=== PATIENT | female | born 1970 | race Caucasian/White ===

== ENCOUNTER 2020-05-19 13:03 | Emergency (ER) | payer MEDICAID, OTHER ==
[2020-05-19] MEDS ORDERED: Ketorolac 60 MG/2 ML SDV IM ONE (14:30)
--- NOTE | 2020-05-19 14:38 | CR ---
Cervical spine: AP, lateral and odontoid views of the cervical spine were obtained. Art: No previous study. Vertebral body heights are maintained. Minimal disc space narrowing is noted at C5-6 and C6-7. Anterior osteophytes are noted at both these levels as well as minimal posterior osteophytes. Other disc spaces and vertebral body heights are maintained. Prevertebral soft tissues are normal. No subluxation or fracture is appreciated. Impression: 1. Mild degenerative change as noted above. 2. Nothing acute is seen. Diagnostic code #2 This report was dictated in MDT
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
== END 2020-05-19 15:41 | disposition home or self-care (01) ==
LOC: JD.ED 13:03
DX: S16.1XXA Strain of muscle, fascia and tendon at neck level, initial encounter (principal); S00.31XA Abrasion of nose, initial encounter; Z88.1 Allergy status to other antibiotic agents; Z88.0 Allergy status to penicillin; Z88.2 Allergy status to sulfonamides; V89.2XXA Person injured in unspecified motor-vehicle accident, traffic, initial encounter
CPT/HCPCS: 72040; 96372; 99284; J1885; 99283

== ENCOUNTER 2020-06-09 16:23 | Emergency (ER) | payer OTHER, MEDICAID ==
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
== END 2020-06-09 17:35 | disposition home or self-care (01) ==
LOC: JD.ED 16:23
DX: S20.02XA Contusion of left breast, initial encounter (principal); Z88.1 Allergy status to other antibiotic agents; Z88.0 Allergy status to penicillin; Z88.2 Allergy status to sulfonamides; V89.2XXA Person injured in unspecified motor-vehicle accident, traffic, initial encounter
CPT/HCPCS: 99282; 99283-25

== ENCOUNTER 2020-06-17 23:56 | Emergency (ER) | payer SELFPAY ==
--- NOTE | 2020-06-18 01:07 | EDM.PDOC ---
ED HPI GENERAL MEDICAL PROBLEM - General Chief Complaint: General Stated Complaint: DIARRHEA/NAUSEA Time Seen by Provider: 06/18/20 00:47 Source of Information: Reports: Patient History Limitations: Reports: No Limitations - History of Present Illness INITIAL COMMENTS - FREE TEXT/NARRATIVE: This is a 49-year-old female. For the last 2 days she has been having diarrhea nausea and some mild vomiting but the last time she vomited was 24 hours ago. She also complains of some left lower back pain as well. She has been having urgency and dysuria but minimal voiding. She is also been incontinent at times. She states she has had no fever and no chills. She denies any cough or any other symptoms. She has had bladder infection for the past but this seems to be worse. She states she is going through menopause and she just finished her period. Left Lower Back Pain Score (Numeric/FACES): 9 - Related Data Allergies Allergy/AdvReac Type Severity Reaction Status Date / Time amoxicillin Allergy Severe Rash Verified 06/18/20 00:25 Penicillins Allergy Severe Hives Verified 06/18/20 00:25 Sulfa (Sulfonamide Allergy Severe Vomiting Verified 06/18/20 00:25 Antibiotics) tetracycline Allergy Severe Other Verified 06/18/20 00:25 Home Meds: Home Meds Phenazopyridine [Pyridium] 100 mg PO TID #15 tab 06/18/20 [Rx] cephALEXin [Keflex] 500 mg PO Q8H #21 cap 06/18/20 [Rx] Past Medical History - Past Health History Medical/Surgical History: Denies Medical/Surgical History Musculoskeletal History: Reports: Other (See Below) Other Musculoskeletal History: fractured right arm-surgery done 1976; - Infectious Disease History Infectious Disease History: Reports: Chicken Pox, Influenza, Measles, Scarlet Fever - Past Surgical History Female Surgical History: Reports: Section Other Female Surgeries/Procedures: emergency 1994 Social & Family History - Family History Family Medical History: Noncontributory - Tobacco Use Smoking Status *Q: Never Smoker Second Hand Smoke Exposure: No - Caffeine Use Caffeine Use: Reports: None - Recreational Drug Use Recreational Drug Use: No ED ROS GENERAL - Review of Systems Review Of Systems: See Below Constitutional: Denies: Fever, Chills HEENT: Reports: No Symptoms Respiratory: Denies: Shortness of Breath, Cough Cardiovascular: Reports: No Symptoms Endocrine: Reports: No Symptoms GI/Abdominal: Reports: Diarrhea, Nausea, Vomiting. Denies: Abdominal Pain : Reports: Dysuria, Incontinence, Urgency Musculoskeletal: Reports: No Symptoms Skin: Reports: No Symptoms Neurological: Reports: No Symptoms Psychiatric: Reports: No Symptoms Hematologic/Lymphatic: Reports: No Symptoms ED EXAM, GENERAL - Physical Exam Exam: See Below Exam Limited By: No Limitations General Appearance: Alert, WD/WN, No Apparent Distress Eye Exam: Bilateral Eye: Normal Inspection Ears: Normal External Exam Nose: Normal Inspection Throat/Mouth: Normal Voice, No Airway Compromise Head: Normocephalic Neck: Supple Respiratory/Chest: No Respiratory Distress, Lungs Clear, Normal Breath Sounds Cardiovascular: Regular Rate, Rhythm, No Murmur GI/Abdominal: Soft, Non-Tender, Other (She has no significant lower abdominal tenderness on palpation) Back Exam: Full Range of Motion, Other (Percussion of her back does not reveal any CVA tenderness, she is slightly sore in the left lower lumbar area on palpation but she moves freely.) Extremities: Normal Inspection, Normal Range of Motion Neurological: Alert, Oriented Psychiatric: Normal Affect, Normal Mood Skin Exam: Warm, Dry Course - Vital Signs Last Recorded V/S: Last Vital Signs Temp 98.1 F 06/18/20 00:20 Pulse 79 06/18/20 00:20 Resp 20 06/18/20 00:20 BP 139/88 06/18/20 00:20 Pulse Ox 95 06/18/20 00:20 - Orders/Labs/Meds Orders: Active Orders 24 hr Category Date Time Status CULTURE URINE [RM] Stat Lab 06/18/20 01:45 Ordered Labs: Laboratory Tests 06/18/20 06/18/20 06/18/20 Range/Units 01:13 01:15 01:15 WBC 8.68 (3.98-10.04) K/mm3 RBC 4.35 (3.98-5.22) M/mm3 Hgb 12.3 (11.2-15.7) gm/dl Hct 38.4 (34.1-44.9) % MCV 88.3 (79.4-94.8) fl MCH 28.3 (25.6-32.2) pg MCHC 32.0 L (32.2-35.5) g/dl RDW Std Deviation 48.7 H (36.4-46.3) fL Plt Count 289 (182-369) K/mm3 MPV 9.3 L (9.4-12.3) fl Neut % (Auto) 63.3 (34.0-71.1) % Lymph % (Auto) 28.8 (19.3-51.7) % [place] % (Auto) 5.6 (4.7-12.5) % Eos % (Auto) 1.8 (0.7-5.8) Baso % (Auto) 0.3 (0.1-1.2) % Neut # (Auto) 5.48 (1.56-6.13) K/mm3 Lymph # (Auto) 2.50 (1.18-3.74) K/mm3 [place] # (Auto) 0.49 H (0.24-0.36) K/mm3 Eos # (Auto) 0.16 (0.04-0.36) K/mm3 Baso # (Auto) 0.03 (0.01-0.08) K/mm3 Sodium 139 (136-145) mEq/L Potassium 3.5 (3.5-5.1) mEq/L Chloride 102 (98-107) mEq/L Carbon Dioxide 29 (21-32) mEq/L Anion Gap 11.5 (5-15) BUN 20 H (7-18) mg/dL Creatinine 0.9 (0.55-1.02) mg/dL Est Cr Clr Drug Dosing 67.29 mL/min Estimated GFR (MDRD) > 60 (>60) mL/min BUN/Creatinine Ratio 22.2 H (14-18) Glucose 110 H (74-106) mg/dL Calcium 8.7 (8.5-10.1) mg/dL Total Bilirubin 0.3 (0.2-1.0) mg/dL AST 10 L (15-37) U/L ALT 21 (14-59) U/L Alkaline Phosphatase 75 (46-116) U/L Total Protein 7.5 (6.4-8.2) g/dl Albumin 3.4 (3.4-5.0) g/dl Globulin 4.1 gm/dL Albumin/Globulin Ratio 0.8 L (1-2) Urine Color Yellow (Yellow) Urine Appearance Slt cloudy H (Clear) Urine pH 6.0 (5.0-8.0) Ur Specific [place] 1.020 (1.005-1.030) Urine Protein 1+ H (Negative) Urine Glucose (UA) Negative (Negative) Urine Ketones Negative (Negative) Urine Occult Blood 2+ H (Negative) Urine Nitrite Negative (Negative) Urine Bilirubin Negative (Negative) Urine Urobilinogen 0.2 (0.2-1.0) Ur Leukocyte Esterase 1+ H (Negative) Urine RBC 10-20 H (0-5) /hpf Urine WBC 20-30 H (0-5) /hpf Ur Epithelial Cells 0-5 (0-5) /hpf Urine Bacteria Few (FEW) /hpf Urine Mucus Few (FEW) /hpf Meds: Medications Discontinued Medications Generic Name Dose Route Start Last Admin Trade Name Nina PRN Reason Stop Dose Admin Ibuprofen 400 mg 06/18/20 01:53 06/18/20 01:57 Motrin PO 06/18/20 01:54 400 mg ONETIME ONE Administration - Re-Assessments/Exams Free Text/Narrative Re-Assessment/Exam: 06/18/20 02:02 I spoke to the patient regarding her CBC and CMP that they were essentially normal. Her urine does show a lot of red cells a lot of white cells a few bacteria. I did culture the urine. Because of her symptoms I believe she has a urinary tract infection though she does not have a kidney infection. I will treat her as such. Departure - Departure Time of Disposition: 02:03 Disposition: Home, Self-Care 01 Condition: Good Clinical Impression: Urinary tract infection Qualifiers: Urinary tract infection type: acute cystitis Hematuria presence: with hematuria Qualified Code(s): N30.01 - Acute cystitis with hematuria - Discharge Information *PRESCRIPTION DRUG MONITORING PROGRAM REVIEWED*: Not Applicable *COPY OF PRESCRIPTION DRUG MONITORING REPORT IN PATIENT MARICEL: Not Applicable Prescriptions: cephALEXin [Keflex] 500 mg PO Q8H #21 cap Phenazopyridine [Pyridium] 100 mg PO TID #15 tab Instructions: Urinary Tract Infection, Adult Referrals: PCP,None [Primary Care Provider] - Forms: ED Department Discharge Additional Instructions: The antibiotics and the Pyridium tomorrow and start taking them, remember the P yridium will make your urine orange and will stay near close so use a pad, follow-up with your doctor this coming week for recheck, we did culture your urine to make sure you are on the correct antibiotic and we will call you if we need to change antibiotics, return to the ER if needed Sepsis Event Note (ED) - Evaluation Sepsis Screening Result: No Definite Risk - Focused Exam Vital Signs: Vital Signs Temp Pulse Resp BP Pulse Ox 06/18/20 00:20 98.1 F 79 20 139/88 95 - My Orders Last 24 Hours: My Active Orders 06/18/20 01:45 CULTURE URINE [RM] Stat - Assessment/Plan Last 24 Hours: My Active Orders 06/18/20 01:45 CULTURE URINE [RM] Stat
[2020-06-18] MEDS ORDERED: Ibuprofen 400 MG Tab PO ONE (01:53)
[2020-06-18] MEDS ORDERED: cefTRIAXone 1 GM, Lidocaine 1% 2.1 ML IM SCH ×2 (02:15)
== END 2020-06-18 02:17 | disposition home or self-care (01) ==
LOC: JD.ED 23:56
DX: N30.01 Acute cystitis with hematuria (principal); R19.7 Diarrhea, unspecified; R11.2 Nausea with vomiting, unspecified; Z98.890 Other specified postprocedural states; Z88.0 Allergy status to penicillin; Z88.2 Allergy status to sulfonamides; Z88.1 Allergy status to other antibiotic agents
CPT/HCPCS: 36415; 80053; 81001; 85025; 87086; 87088; 87186; 99284; A9270; J0696; J2001; 99283